=== PATIENT | male | born 1935 | race Caucasian/White ===

== ENCOUNTER 2018-08-28 07:12 | Day surgery (SDC) | payer OTHER ==
[2018-08-24 16:19] VITALS: BMI 28.5
[2018-08-28] MEDS ORDERED: SUCCINYLCHOLINE CHLORIDE 200 MG/10 ML VIAL ONE (07:54)
[2018-08-28] MEDS ORDERED: PROPOFOL 20 ML ONE (07:54)
[2018-08-28] MEDS ORDERED: MIDAZOLAM HCL 2 MG/2 ML SINGLE DOSE VIAL ONE (08:15)
[2018-08-28] MEDS ORDERED: ceFAZolin SODIUM 1 GM VIAL ONE (09:14)
[2018-08-28] MEDS ORDERED: DEXAMETHASONE SOD PHOSPHATE 4 MG/1 ML VIAL ONE (09:19)
[2018-08-28] MEDS ORDERED: ONDANSETRON 4 MG/2 ML VIAL ONE (09:19)
[2018-08-28] MEDS ORDERED: BENZOIN/ALOE VERA/STORAX/TOLU 58 ML BOTTLE ONE (10:14)
[2018-08-28] MEDS ORDERED: TRANEXAMIC ACID 1000 MG/10 ML VIAL ONE (10:48)
--- NOTE | 2018-08-28 11:14 | PN ---
Progress Note (short form) - Note Progress Note: 83M s/p RIGHT shoulder open Bebeto procedure, Neer Decompression, & rotator cuff repair POD #0. -Pain control: Meloxicam & oxycodone PRN. -Incentive spirometry. -No chemical DVT PPx. -RUE ABDUCTION sling at all times. -No RIGHT shoulder ROM. -Daily RIGHT elbow, wrist & hand ROM. -Keep dressing clean & dry. -f/u in [facility] [place] Office on 08/28/2018; call for appointment; . Eddie Colmenares MD (Orthopaedic Surgery).
--- NOTE | 2018-08-28 11:19 | OP ---
Operative Note - Note: Operative Date: 08/28/18 Pre-Operative Diagnosis: Right shoulder: 1. Impingement syndrome. 2. Full thickness rotator cuff tear Operation: Right shoulder open: 1. Bebeto procedure. 2. Neer decompression. 3. Rotator cuff repair with allograft patch Findings: Full thickness rotator cuff tear Implants: 2x2.5cm [employer] collagen scaffold/patch Surgeon: Eddie Colmenares Butane Compressor Operator: Rehan Colmenares Anesthesiologist/[employer]ACULTY MEMBER: Dung Gomez Anesthesia: General (LMA), Local (Scalene block) Specimens Removed: Excision arthroplasty AC joint Estimated Blood Loss (mls): 50 Fluid Volume Replaced (mls): 500 (Crystalloid) Operative Report Dictated: Yes
[2018-08-28] MEDS ORDERED: oxyCODONE HCL 5 MG TABLET PO PRN (11:21)
[2018-08-28] MEDS ORDERED: ONDANSETRON 4 MG/2 ML VIAL IVPUSH PRN (11:21)
[2018-08-28] MEDS ORDERED: ACETAMINOPHEN 325 MG TABLET (FP) PO PRN (11:21)
[2018-08-28 12:31] VITALS: PULSE 73; TEMP 97.7
--- NOTE | 2018-08-28 13:31 | OP ---
Date of Operation: 08/28/2018 Surgeon: Eddie Colmenares MD Healthcare Risk Control Consultant: Rehan Colmenares MD Pre-Operative Diagnosis: Right shoulder: 1. Impingement syndrome. 2. Rotator cuff tear. Post-Operative Diagnosis: Right shoulder: 1. Impingement syndrome. 2. Full thickness rotator cuff tear. Surgical Procedure: Right shoulder open: 1. Bebeto procedure (distal clavicle excision). 2. Neer decompression (undercutting acromioplasty and coraco-acromial ligament release). 3. Primary rotator cuff repair with use of a collagen scaffold allograft patch. Findings: 1. Full-thickness supraspinatus tear. Anesthesia: General (LMA), Regional (interscalene block). Position: Beach chair. Incision: Longitudinal. Estimated Blood Loss: 50cc. Intravenous Fluid: 500cc Crystalloid. Specimens: Excision arthroplasty AC joint. Drains: None. Complications: None. Urine output: None. Bacteriology: None. Transfusions: None. Closure: #1 Vicryl. 3-0 Biosyn. Indications: The patient is an 83 year old male who was indicated for an open right shoulder distal claviculectomy (Bebeto procedure), coraco-acromial ligament release & Acromioplasty (Neer Decompression), and rotator cuff repair in order to ameliorate the symptoms associated with shoulder impingement syndrome and associated rotator cuff pathology. The patient was identified in the holding area by his armband. A long discussion was held with the patient (in the presence of his family) regarding the risks, benefits and alternatives of the above-named procedure. Risks include but are not limited to: pain, bleeding, infection, damage to surrounding structures (including nerves, blood vessels, skin, ligaments, tendons and bone), reflex sympathetic dystrophy (RSD), wound complications, failure of repair, need for further surgery, blood clots, myocardial infarction , pulmonary embolism, anesthesia complications, compartment syndrome, limb loss , limp, loss of function, cerebrovascular event, and . Benefits as mentioned above. Alternatives include no surgery. All questions were answered. The patient and his family understood and agreed to the procedure. Informed consent was obtained, witnessed and verified. The patients correct operative limb - the right upper extremity - was marked, and the anesthesia team administered an ipsilateral interscalene nerve block. The patient was then taken to the operating room after being seen by the anesthesia and nursing staff. Procedure: The patient was brought into the operating room, placed supine on the OR table and secured with a safety strap. Consent and the operative site was again verified with the patient and nursing and anaesthesia staff. Anaesthesia & antibiotics were then administered without complication. A time-out was done led by , the attending surgeon. The patient was positioned with all bony prominences well padded. A soft bump was placed under the inferior pole of the ipsilateral scapula. The operative limb was prepped in standard sterile fashion using betadine prep & scrub, wiped off with alcohol, and DuraPrep, and then free draped. A time-out was repeated, and the case began. An incision was made in the lines of Jeannette from the coracoid process to the lateral tip of the acromion. The deltoid was identified. Subcutaneous dissection was carried with electrocautery down to the level of the distal clavicle. With the distal clavicle exposed, sharp Hohmann retractors were placed around the inferior aspects of the anterior and posterior surfaces of the distal clavicle to elevate it. The acromioclavicular (AC) joint was clearly identified and the AC ligament was incised using a 15-blade. The distal 1cm of the clavicle was marked for excision. An oscillating saw was used to perform a distal clavicular osteotomy. A beveled angular cut was made to avoid leaving a sharp inferior corner to impinge on the rotator cuff below. The excision arthroplasty of the distal clavicle was completed and excised from its capsular attachments using a 15-blade. The soft tissues of the joint were saved for later closure. Throughout the case, hemostasis was assured using either monopolar or bipolar electrocautery. Next, the deltoid was elevated [facility] an [facility] ret[facility], revealing the coraco-acromial (CA) ligament below. The CA ligament was incised longitudinally using a fresh 15-blade. The CA ligament was then fully released proximally and distally using Metzenbaum scissors. With the CA ligament fully decompressed, the subacromial space became easily accessible. This space was extremely tight. The AC joint capsule was neatly dissected to expose the distal acromion. A blunt Hohmann retractor was placed on the undersurface of the acromion, levering the humeral head down, protecting the underlying structures. Next, the oscillating saw was used to osteotomize the undersurface of the acromion with a beveled cut. A straight 1/2" osteotome was used to complete the cut and to free the excised segment of bone. The osteotomized acromioplasty bone fragment was then removed using a rongeur with a 15-blade to release any soft tissue attachments. The wound was copiously irrigated throughout the case using normal saline solution. Next, with finger palpation, an entire finger was delivered into the sub- acromial space and bursal adhesions were released using manual finger debridement. The shoulder was then taken through a full range of motion were a full thickness tear of the supraspinatus tendon was visualized. A single #1 vicryl suture was used in simple interrupted fashion to bridge and repair the rotator cuff derangement. This was augmented using a [id number] collagen scaffold allograft patch sutured in place overlying the repair of the tear. At this point the wound was copiously irrigated. The AC joint capsule was closed primarily using #1 vicryl sutures. The released proximal anterior deltoid fibers were approximated to the AC joint capsule using #1 vicryl sutures. Again, copious irrigation was performed, hemostasis was assured and the wound was closed primarily using #1 and sutures. The skin was closed using a 3-0 Biosyn subcuticular suture. A sterile, compressive dressing was applied. The arm was place in an abduction sling. The sponge and needle counts were correct at the end of the case and Kristi, the attending surgeon, was present and scrubbed throughout the case. The patient was then transferred to a hospital stretcher and to the recovery room in stable condition, having tolerated the procedure well. A sling was applied at the end of the case. MD UMANG [id number] MTDMarquise
[2018-08-28 14:45] VITALS: BP 130/76
== END 2018-08-28 13:35 | disposition home or self-care (01) ==
LOC: FASU 07:12
PROVIDERS: ATTEND Orthopaedic Surgery Orthopaedic Surgery of the Spine
PROC: 0MN10ZZ Release Right Shoulder Bursa and Ligament, Open Approach (ICD-10-PCS; 2018-08-28)
PROC: 0LQ10ZZ Repair Right Shoulder Tendon, Open Approach (ICD-10-PCS; 2018-08-28)
PROC: 0PB90ZZ Excision of Right Clavicle, Open Approach (ICD-10-PCS; principal; 2018-08-28 09:40)
DX: M75.41 Impingement syndrome of right shoulder (principal); M75.121 Complete rotator cuff tear or rupture of right shoulder, not specified as traumatic
CPT/HCPCS: 82962; 94760

== ENCOUNTER 2021-06-01 10:20 | Day surgery (SDC) | payer OTHER ==
[2021-05-30 12:02] VITALS: BMI 25.4
[2021-06-01] MEDS ORDERED: ROPIVACAINE HCL 0.5% 30ML VIAL ONE (12:28)
[2021-06-01] MEDS ORDERED: MIDAZOLAM HCL 2 MG/2 ML SINGLE DOSE VIAL ONE (12:28)
[2021-06-01] MEDS ORDERED: PROPOFOL 20 ML ONE (14:51)
[2021-06-01] MEDS ORDERED: ceFAZolin SODIUM 1 GM VIAL ONE (15:03)
[2021-06-01] MEDS ORDERED: DEXAMETHASONE SOD PHOSPHATE 4 MG/1 ML VIAL ONE (15:21)
[2021-06-01] MEDS ORDERED: TRANEXAMIC ACID 1000 MG/10 ML VIAL ONE (15:55)
[2021-06-01] MEDS ORDERED: ONDANSETRON 4 MG/2 ML VIAL ONE (16:14)
[2021-06-01] MEDS ORDERED: ONDANSETRON 4 MG/2 ML VIAL IVPUSH PRN (16:55)
[2021-06-01] MEDS ORDERED: ACETAMINOPHEN 325 MG TABLET (FP) PO PRN (16:55)
[2021-06-01] MEDS ORDERED: oxyCODONE HCL 5 MG TABLET PO PRN (16:55)
[2021-06-01 17:32] VITALS: PULSE 82
[2021-06-01 18:13] VITALS: BP 123/74; TEMP 97.9
[2021-06-01] MEDS ORDERED: BUDESONIDE/FORMETEROL FUMARATE 80/4.5 mcg INHALER IH SCH (22:00)
[2021-06-01] MEDS ORDERED: PATIENT'S OWN MEDICATION (NON-FORMULARY) (Sitagliptin Phos/Metformin Hcl [Janumet 50-500 M PO SCH (22:00)
[2021-06-02] MEDS ORDERED: TAMSULOSIN HCL 0.4 MG CAP PO SCH (08:30)
[2021-06-02] MEDS ORDERED: ATORVASTATIN CA 10 MG TABLET (FP) PO SCH (10:00)
[2021-06-02] MEDS ORDERED: PATIENT'S OWN MEDICATION (NON-FORMULARY) (Valsartan/Hydrochlorothiazide [Valsartan-Hctz 32 PO SCH (10:00)
[2021-06-02] MEDS ORDERED: amLODIPine BESYLATE 10 MG TABLET (FP) PO SCH (10:00)
[2021-06-02] MEDS ORDERED: DONEPEZIL HCL 5 MG TABLET (FP) PO SCH (10:00)
[2021-06-02] MEDS ORDERED: VALSARTAN 160 MG TABLET PO SCH (10:00)
[2021-06-02] MEDS ORDERED: HYDROCHLOROTHIAZIDE 12.5 MG CAPSULE (FP) PO SCH (10:00)
[2021-06-02] MEDS ORDERED: MONTELUKAST NA 10 MG TABLET PO SCH (22:00)
== END 2021-06-01 18:19 | disposition home or self-care (01) ==
LOC: FASU 10:20
PROVIDERS: ATTEND Orthopaedic Surgery Adult Reconstructive Orthopaedic Surgery
PROC: 0LM10ZZ Reattachment of Right Shoulder Tendon, Open Approach (ICD-10-PCS; principal; 2021-06-01 15:42)
PROC: 0LQ10ZZ Repair Right Shoulder Tendon, Open Approach (ICD-10-PCS; 2021-06-01 15:42)
DX: M75.121 Complete rotator cuff tear or rupture of right shoulder, not specified as traumatic (principal); M75.41 Impingement syndrome of right shoulder
CPT/HCPCS: 82962; 88304-TC; 94760